=== PATIENT | male | born 1995 | race Caucasian/White ===

== ENCOUNTER 2017-05-02 16:17 | Emergency (ER) | payer BC ==
--- NOTE | 2017-05-02 18:57 | RAD ---
RADIOGRAPH RIGHT ANKLE 3 VIEWS: 05/02/17 HISTORY: 21-year-old male status post traumatic injury to the right ankle with persistent pain. FINDINGS: The ankle mortise is symmetrical. Talar dome is maintained. No fracture, subluxation, dislocation, or any other osseous abnormality. IMPRESSION: Normal. POS: [facility]
== END 2017-05-02 18:02 | disposition home or self-care (01) ==
LOC: ERS 16:17
DX: S06.0X9A Concussion with loss of consciousness of unspecified duration, initial encounter (principal); S93.401A Sprain of unspecified ligament of right ankle, initial encounter; V00.311A Fall from snowboard, initial encounter